=== PATIENT | male | born 1990 | race African-American/Black ===

== ENCOUNTER 2017-10-06 09:32 | Emergency (ER) | payer SELFPAY ==
[~2017-10-06] VITALS: Ht 165.1 cm; Wt 59.0 kg
[2017-10-06 10:01] VITALS: BP 110/71
== END 2017-10-06 12:41 | disposition home or self-care (01) ==
LOC: ER 09:32
DX: S82.52XA Displaced fracture of medial malleolus of left tibia, initial encounter for closed fracture (principal); X50.1XXA Overexertion from prolonged static or awkward postures, initial encounter; F17.200 Nicotine dependence, unspecified, uncomplicated; Y93.89 Activity, other specified; Y92.89 Other specified places as the place of occurrence of the external cause; Y99.8 Other external cause status; Z88.2 Allergy status to sulfonamides
CPT/HCPCS: 29515; 73610; 99284